=== PATIENT | male | born 1940 | race Caucasian/White ===

== ENCOUNTER 2018-11-22 13:46 | Inpatient (IN) ==
[2018-11-22] MEDS ORDERED: SODIUM CHLORIDE 0.9% 1,000 ML IV STA (14:12)
[2018-11-22 14:34] LABS: Basophils # 0.1 10*3/uL (0.0-0.2); Eosinophils # 0.4 10*3/uL (0.0-0.87); Eosinophils % 3.8 % (0.00-10.9); Hematocrit 44.4 VOL% (42.0-52.0); Hemoglobin 14.8 GM/DL (14.0-18.0); Immature Granulocytes % 0.4 %; Immature Granulocytes Absolute 0.05 #; Lymphocytes # 1.5 10*3/uL (1.4-4.0); Lymphocytes % 13.1 % (21.2-54.2); Mean Corpuscular HGB Conc 33.3 GM/DL (32-36); Mean Corpuscular Volume 88.8 FL (87-102); Mean Platelet Volume 10.7 FL (9.6-12.0); Monocytes % 7.4 % (1.7-12.7); Neutrophils % 74.3 % (38.7-73.9); Platelet Count 187 T/CUMM (130-400); Red Cell Distribution Width 13.9 % (9.3-17.3); White Blood Count 11.4 T/CUMM (4-12)
[2018-11-22 14:44] LABS: PT Patient Result 10.6 SECS (9.6-12.2); Partial Thromboplastin Time 22.6 SECS (20.8-36.0)
[2018-11-22 15:07] LABS: Alanine Aminotransferase 29 U/L (16-61); Albumin 3.8 G/DL (3.4-5.0); Alkaline Phosphatase 115 U/L (45-117); Aspartate Amino Transferase 32 U/L (0-37); Blood Urea Nitrogen 17 MG/DL (7-18); Glucose 91 MG/DL (74-106); Osmolality,Calculated 284.1 MOS/KG (273-304); Total Protein 7.2 G/DL (6.4-8.3)
[2018-11-22] MEDS ORDERED: FAMOTIDINE 20 MG TABLET PO PRN (15:29)
[2018-11-22] MEDS ORDERED: ONDANSETRON 4 MG/2 ML VIAL IV PRN (15:35)
[2018-11-22] MEDS ORDERED: diphenhydrAMINE CAP 25 MG CAPSULE PO PRN (15:35)
[2018-11-22] MEDS ORDERED: ACETAMINOPHEN 325 MG TABLET PO PRN (15:35)
[2018-11-22] MEDS ORDERED: traZODone 50 MG TABLET PO PRN (15:35)
[2018-11-22] MEDS ORDERED: ZALEPLON 5 MG CAPSULE PO PRN (15:35)
[2018-11-22] MEDS ORDERED: PROMETHAZINE 25 MG TABLET PO PRN (15:35)
[2018-11-22 16:06] LABS: Apearance,Urine CLEAR (Clear); Bilirubin,Urine Negative (Negative); Blood, Urine Negative (Negative); Glucose,Urine (UA) Negative (Negative); Ketones,Urine 5 mg/dL (Negative); Mucus,Urine Occasional /LPF (Occasional); Nitrite,Urine Negative (Negative); Protein,Urine Negative; RBC,Urine 2 /HPF (0-4); Squamous Epithelial Cell,Urine Occasional /HPF (0-10); Urine Color Yellow (Yellow); Urine Specific Gravity 1.011 (1.001-1.035); Urine Urobilinogen < 2.0 EU/DL (0.2-1.0); WBC,Urine 1 /HPF (0-6)
[2018-11-22 16:48] LABS: Barbiturates Screen,Urine Negative (Negative); Benzodiazepines Screen,Urine Negative (Negative); Cannabinoid Screen,Urine Negative (Negative); Opiate Screen,Urine Negative (Negative); Phencyclidine Screen,Urine Negative (Negative)
[2018-11-22] MEDS: SODIUM CHLORIDE 0.45% 1,000 ML IV SCH (18:09)
[2018-11-22] MEDS: SOTALOL 80 MG TABLET PO SCH (21:41)
[2018-11-23 05:39] LABS: Basophils # 0.1 10*3/uL (0.0-0.2); Basophils % 1.1 % (0.0-0.8); Eosinophils # 0.3 10*3/uL (0.0-0.87); Eosinophils % 4.6 % (0.00-10.9); Hematocrit 39.5 VOL% (42.0-52.0); Hemoglobin 12.6 GM/DL (14.0-18.0); Immature Granulocytes % 0.3 %; Immature Granulocytes Absolute 0.02 #; Lymphocytes # 1.5 10*3/uL (1.4-4.0); Lymphocytes % 21.9 % (21.2-54.2); Mean Corpuscular HGB Conc 31.9 GM/DL (32-36); Mean Corpuscular Volume 91.6 FL (87-102); Mean Platelet Volume 10.9 FL (9.6-12.0); Monocytes % 8.6 % (1.7-12.7); Neutrophils % 63.5 % (38.7-73.9); Platelet Count 173 T/CUMM (130-400); Red Blood Count 4.31 MC/CUMM (3.8-5.5); Red Cell Distribution Width 13.9 % (9.3-17.3)
[2018-11-23 06:11] LABS: Risk Ratio 2.73; VLDL CHOLESTEROL 17.2 MG/DL
[2018-11-23 06:15] LABS: Bilirubin,Total 0.6 MG/DL (0.2-1.0); Calcium 8.2 MG/DL (8.5-10.1); Thyroid Stimulating Hormone 3.76 uIU/ml (0.358-3.74); Total Protein 5.9 G/DL (6.4-8.3)
[2018-11-23] MEDS: OMEGA 3 ACID ETHYL ESTERS 1 GM CAPSULE PO SCH (08:36)
[2018-11-23] MEDS: ROSUVASTATIN 20 MG TABLET PO SCH (08:37)
[2018-11-23] MEDS: CITALOPRAM 20 MG TABLET PO SCH (08:37)
[2018-11-23] MEDS: NAPROXEN 250 MG TABLET PO SCH (08:37)
[2018-11-23] MEDS: CYANOCOBALAMIN 500 MCG TABLET PO SCH (08:37)
[2018-11-23] MEDS: ASPIRIN EC 325 MG TABLET PO SCH (08:37)
[2018-11-23] MEDS: SOTALOL 80 MG TABLET PO SCH ×2 (08:37→21:35)
[2018-11-23] MEDS: PANTOPRAZOLE 40 MG TABLET PO SCH (08:38)
[2018-11-23] MEDS ORDERED: CLOPIDOGREL 75 MG TABLET PO SCH (09:00)
[2018-11-23] MEDS ORDERED: SAW VIT E SOD SEL LYC BETA PYG PO SCH (09:00)
[2018-11-23] MEDS ORDERED: [UNRECOGNIZED DRUG - REMARK] PO SCH (09:00)
[2018-11-23] MEDS: SODIUM CHLORIDE 0.45% 1,000 ML IV SCH (14:11)
[2018-11-23] MEDS: APIXABAN 2.5 MG TABLET PO SCH (21:34)
[2018-11-24 07:50] VITALS: BP 167/91
[2018-11-24] MEDS: SODIUM CHLORIDE 0.45% 1,000 ML IV SCH (09:21)
[2018-11-24] MEDS: APIXABAN 2.5 MG TABLET PO SCH (09:27)
[2018-11-24] MEDS: CYANOCOBALAMIN 500 MCG TABLET PO SCH (09:27)
[2018-11-24] MEDS: SOTALOL 80 MG TABLET PO SCH (09:27)
[2018-11-24] MEDS: ROSUVASTATIN 20 MG TABLET PO SCH (09:27)
[2018-11-24] MEDS: OMEGA 3 ACID ETHYL ESTERS 1 GM CAPSULE PO SCH (09:27)
[2018-11-24] MEDS: NAPROXEN 250 MG TABLET PO SCH (09:27)
[2018-11-24] MEDS: CITALOPRAM 20 MG TABLET PO SCH (09:27)
[2018-11-24] MEDS: PANTOPRAZOLE 40 MG TABLET PO SCH (09:27)
[2018-11-24] MEDS: ASPIRIN EC 325 MG TABLET PO SCH (09:27)
== END 2018-11-24 11:26 | disposition home or self-care (01) | DRG 65 ==
LOC: EDUNIT# → EDBD → N.ED 13:46 → N.EDINP 13:46 → N.5E 15:39
PROVIDERS: ADMIT Internal Medicine; ATTEND Internal Medicine